=== PATIENT | male | born 1945 | race Caucasian/White ===

== ENCOUNTER 2021-06-04 17:00 | Emergency (ER) | payer MEDICARE, OTHER ==
[~2021-06-04 17:00] MED LIST: GABAPENTIN600 MG PO; METHADONE 5MG TA5 MG PO; OXYCODON-ACETA1 EAC1 PO
[2021-06-04] MEDS ORDERED: BENTYL10 MG PO (17:57)
[2021-06-04] MEDS ORDERED: ZOFRAN4 M1 PO (17:57)
[2021-06-05] MEDS ORDERED: CARAFATE1 GM PO (00:11)
[2021-06-20] MEDS ORDERED: HYDROCODON-ACE1 EAC6 PO (09:53)
[2021-06-20] MEDS ORDERED: CYCLOBENZAPRINE5 MG PO (09:53)
[2021-07-19] MEDS ORDERED: FLEXERIL5 MG PO ×2 (14:42→15:55)
[2021-07-19] MEDS ORDERED: GABAPENTIN600 MG PO ×2 (14:42→15:55)
[2021-07-19] MEDS ORDERED: HYDROCODON-ACE1 EAC2 PO (17:42)
[2021-08-21] MEDS ORDERED: GABAPENTIN600 MG PO (15:27)
== END 2021-06-05 00:30 | disposition home or self-care (01) ==
LOC: FER 17:00
DX: R10.9 Unspecified abdominal pain (principal); I51.9 Heart disease, unspecified; I10 Essential (primary) hypertension; Z90.49 Acquired absence of other specified parts of digestive tract; Z98.890 Other specified postprocedural states; Z88.0 Allergy status to penicillin
CPT/HCPCS: 99283

== ENCOUNTER 2021-06-04 19:50 | Emergency (ER) | payer MEDICARE, OTHER ==
[~2021-06-04 19:50] MED LIST changes: +BENTYL10 MG PO; +ZOFRAN4 M1 PO
[2021-06-04 20:43] LABS: BASOPHIL 0.2 % (0-2); EOSINOPHIL 0.1 % (0-7); HCT 44.9 % (42.0-52.0); HGB 15.1 g/dl (13.2-18.0); LYMPHOCYTE 6.4 % (15-48); MCH 29.2 pg (25.0-31.0); MCHC 33.6 g/dL (32.0-36.0); MCV 86.8 fL (78.0-100.0); MONOCYTE 6.1 % (0-12); NEUTROPHIL 86.7 % (41-80); NRBC 0; PLT 279 K/uL (150-400); RBC 5.17 M/uL (4.70-6.00); RDW 13.6 % (11.5-14.0); WBC 18.2 K/uL (4.0-10.5)
[2021-06-04 21:01] LABS: ALBUMIN 3.9 g/dL (3.4-5.0); BILIRUBIN - TOTAL 0.6 mg/dL (0.2-1.0); CREATININE 1.07 mg/dL (0.67-1.17); GLOBULIN (CALCULATION) 4.7 g/dL; POTASSIUM 3.6 mmol/L (3.5-5.1); TOTAL PROTEIN 8.6 g/dL (6.4-8.2)
[2021-06-04 21:05] LABS: BILIRUBIN NEGATIVE (NEGATIVE); BLOOD NEGATIVE Ery/uL (NEGATIVE); CLARITY CLEAR (CLEAR); COLOR YELLOW (YELLOW); GLUCOSE (U) NORMAL (NORMAL); LEUKOCYTES NEGATIVE Leu/uL (NEGATIVE); NITRITE NEGATIVE (NEGATIVE); PROTEIN 1+ mg/dL (NEGATIVE); SPECIFIC GRAVITY >=1.030 (1.001-1.030); UROBILINOGEN 0.2 mg/dL (0.2-1.0); pH 5.5 (5.0-9.0)
[2021-06-04 21:18] LABS: BACTERIA TRACE; MUCOUS MODERATE
[2021-06-04 21:21] LABS: LACTIC ACID 3.1 mmol/L (0.4-1.9)
[2021-06-05] MEDS ORDERED: CARAFATE1 GM PO (00:11)
[2021-06-20] MEDS ORDERED: CYCLOBENZAPRINE5 MG PO (09:53)
[2021-06-20] MEDS ORDERED: HYDROCODON-ACE1 EAC6 PO (09:53)
[2021-07-19] MEDS ORDERED: GABAPENTIN600 MG PO ×2 (14:42→15:55)
[2021-07-19] MEDS ORDERED: FLEXERIL5 MG PO ×2 (14:42→15:55)
[2021-07-19] MEDS ORDERED: HYDROCODON-ACE1 EAC2 PO (17:42)
[2021-08-21] MEDS ORDERED: GABAPENTIN600 MG PO (15:27)
== END 2021-06-05 00:30 | disposition home or self-care (01) ==
LOC: FER 19:50
PROVIDERS: Emergency Medicine Emergency Medical Services
DX: R10.11 Right upper quadrant pain (principal); D72.829 Elevated white blood cell count, unspecified; E86.0 Dehydration; R06.2 Wheezing; J43.9 Emphysema, unspecified; Z98.890 Other specified postprocedural states; Z87.09 Personal history of other diseases of the respiratory system; Z79.899 Other long term (current) drug therapy
CPT/HCPCS: 36415; 71045; 80053; 81001; 83605; 83690; 84145; 84484; 85025; 99283; J1170; J1885; J2405; J7040; Q9967

== ENCOUNTER 2021-06-11 08:11 | Emergency (ER) | payer MEDICARE, OTHER ==
[~2021-06-11 08:11] MED LIST changes: +CARAFATE1 GM PO
[2021-06-11 08:44] LABS: BASOPHIL 0.2 % (0-2); EOSINOPHIL 0 % (0-7); HGB 13.8 g/dl (13.2-18.0); LYMPHOCYTE 4.6 % (15-48); MCH 28.8 pg (25.0-31.0); MCHC 32.9 g/dL (32.0-36.0); MCV 87.7 fL (78.0-100.0); MONOCYTE 7.3 % (0-12); MPV 11.6 fL (6.0-9.5); NRBC 0; PLT 252 K/uL (150-400); RBC 4.79 M/uL (4.70-6.00); RDW 13.6 % (11.5-14.0); WBC 25.9 K/uL (4.0-10.5)
[2021-06-11 08:49] LABS: INR 1.17 (0.9-1.2); PROTHROMBIN TIME 14.3 SECONDS (11.8-13.4)
[2021-06-11 08:50] LABS: D-DIMER 3.11 ug/mLFEU (0.00-0.41)
[2021-06-11 08:54] LABS: PTT 36.1 SECONDS (24.4-34.7)
[2021-06-11 08:56] LABS: ALBUMIN 3.6 g/dL (3.4-5.0); BILIRUBIN - TOTAL 0.8 mg/dL (0.2-1.0); BUN/CREAT RATIO (CALC) 17.4 RATIO; C-REACTIVE PROTEIN 8.8 mg/dL (<=0.90); CREATININE 1.09 mg/dL (0.67-1.17); GLOBULIN (CALCULATION) 4.5 g/dL; MAGNESIUM 1.8 mg/dL (1.8-2.4); POTASSIUM 3.2 mmol/L (3.5-5.1); TOTAL PROTEIN 8.1 g/dL (6.4-8.2)
[2021-06-11 09:01] LABS: PRO-BNP 1178 pg/mL (<125)
[2021-06-11 09:02] LABS: LACTIC ACID 3.2 mmol/L (0.4-1.9)
[2021-06-11 09:19] LABS: IRON % SATURATION 6.8 %SAT (20-50)
[2021-06-11 10:25] LABS: BILIRUBIN NEGATIVE (NEGATIVE); BLOOD NEGATIVE Ery/uL (NEGATIVE); CLARITY CLEAR (CLEAR); COLOR YELLOW (YELLOW); GLUCOSE (U) NORMAL (NORMAL); LEUKOCYTES NEGATIVE Leu/uL (NEGATIVE); NITRITE NEGATIVE (NEGATIVE); PROTEIN NEGATIVE (NEGATIVE); UROBILINOGEN 0.2 mg/dL (0.2-1.0); pH 6.5 (5.0-9.0)
[2021-06-20] MEDS ORDERED: CYCLOBENZAPRINE5 MG PO (09:53)
[2021-06-20] MEDS ORDERED: HYDROCODON-ACE1 EAC6 PO (09:53)
[2021-07-19] MEDS ORDERED: GABAPENTIN600 MG PO ×2 (14:42→15:55)
[2021-07-19] MEDS ORDERED: FLEXERIL5 MG PO ×2 (14:42→15:55)
[2021-07-19] MEDS ORDERED: HYDROCODON-ACE1 EAC2 PO (17:42)
[2021-08-21] MEDS ORDERED: GABAPENTIN600 MG PO (15:27)
== END 2021-06-11 15:35 | disposition other institution (70) ==
LOC: FER 08:11
PROVIDERS: Emergency Medicine
DX: K55.059 Acute (reversible) ischemia of intestine, part and extent unspecified (principal); R65.10 Systemic inflammatory response syndrome (SIRS) of non-infectious origin without acute organ dysfunction; R94.31 Abnormal electrocardiogram [ECG] [EKG]; Z88.0 Allergy status to penicillin; Z90.49 Acquired absence of other specified parts of digestive tract; Z20.822 Contact with and (suspected) exposure to COVID-19
CPT/HCPCS: 36415; 36600; 71275; 80053; 81003; 82803; 83540; 83550; 83605; 83615; 83690; 83735; 83880; 84145; 84484; 85025; 85379; 85610; 85730; 86140; 87040; 87088; 93005; 94640; 94664; 94762; J1170; J2185; J2405; J2550; J3475; J7030; Q9967; U0002